=== PATIENT | female | born 1995 | race Caucasian/White ===

== ENCOUNTER 2024-02-25 02:33 | Emergency (ER) | payer BC ==
[~2024-02-25] VITALS: Ht 160 cm; Wt 53.5 kg
[2024-02-25 03:10] VITALS: TEMP 99.2
[2024-02-25] MEDS ORDERED: FLUCONAZOLE (100 MG) 100 MG TABLET ONE (03:53)
[2024-02-25] MEDS ORDERED: FOSF3PAC GT (03:54)
[2024-02-25] MEDS: FLUCONAZOLE (100 MG) 100 MG TABLET PO ONE (03:56)
[2024-02-25] MEDS ORDERED: FOSFOMYCIN TROMETHAMINE 3 G/PKT PACKET PO ONE (04:00)
[2024-02-25 04:04] VITALS: BP 116/68; O2SAT 98
[2024-02-25 04:17] LABS: APPEARANCE,URINE CLEAR (CLEAR); BILIRUBIN,URINE NEGATIVE (NEGATIVE); BLOOD, URINE 1+ Ery/uL (NEGATIVE); COLOR,URINE YELLOW (YELLOW); KETONES,URINE NEGATIVE (NEGATIVE); LEUKOCYTE ESTERASE ,URINE 3+ (NEGATIVE); NITRITE, URINE NEGATIVE (NEGATIVE); PREGNANCY TEST URINE QUAL NEGATIVE (NEGATIVE); PROTEIN,URINE NEGATIVE (NEGATIVE); UGLUCOSE NEGATIVE (NEGATIVE); UROBILINOGEN,URINE 0.2 EU/dL (0.2)
[2024-02-25 04:18] LABS: ADD URINE CULTURE YES; BACTERIA,URINE Rare /HPF (None Seen); SQUAMOUS EPITHELIAL CELL,UR Rare /HPF (None Seen)
== END 2024-02-25 04:04 | disposition home or self-care (01) ==
LOC: ER 02:37
DX: N39.0 Urinary tract infection, site not specified (principal)
CPT/HCPCS: 81001; 84703-TC; 87086-TC